=== PATIENT | female | born 1980 | race Caucasian/White ===

== ENCOUNTER 2021-11-21 14:01 | Emergency (ER) | payer OTHER, MEDICAID, SELFPAY ==
[2021-11-21 14:22] VITALS: BP 112/66; PULSE 100; RESP 18; TEMP 36.6; O2SAT 99; BMI 24.1
== END 2021-11-21 14:50 | disposition left against medical advice (07) ==
PROVIDERS: Emergency Provider Family Medicine Addiction Medicine; PCP Family Medicine
CPT/HCPCS: 99281

== ENCOUNTER 2024-10-08 13:22 | Emergency (ER) | payer MEDICAID, SELFPAY ==
[2024-10-08 13:26] VITALS: BP 134/83; PULSE 98; RESP 16; TEMP 36.8; O2SAT 98; BMI 23.0
[2024-10-08 14:19] VITALS: BP 129/82; PULSE 100; RESP 16; TEMP 36.7; O2SAT 95
--- NOTE | 2024-10-08 14:19 | ED.ALCOHOL ---
HPI - Alcohol <Kanchan Pineda PA-C - Last Filed: 10/08/24 14:45> General Chief Complaint: Toxicology Problem Stated Complaint: Fit for Group Home Time Seen by Provider: 10/08/24 13:44 Source: patient and other Mode of arrival: other History of Present Illness HPI narrative: 44-year-old female with past medical history alcohol abuse, cirrhosis of the liver brought in by law enforcement officials to be evaluated for fitness for detention. Officers communicate that patient had an elevated blood alcohol level of 0.28. Patient is in the ED, appears comfortable and is coherent and conversing normally. Patient is able to answer all questions about the alcohol consumption and her health problems. Patient states that she was sober for some time, relapsed into drinking about 10 days ago. Patient states that her last drink was last night. Patient has been drinking daily. Patient does endorse that she sometimes gets the shakes and withdrawal symptoms if she stops drinking. Currently, patient is denying any symptoms. No fever, chills, chest pain, shortness of breath, nausea, vomiting, abdominal pain, dysuria, lightheadedness, dizziness, syncope. Denies any recreational drug use. Related Data Allergies Allergy/AdvReac Type Severity Reaction Status Date / Time amoxicillin Allergy Mild Verified 11/21/21 14:22 Review of Systems <Kanchan Pineda PA-C - Last Filed: 10/08/24 14:45> Review of Systems Narrative: Patient has no complaints at this time Constitutional Constitutional: Denies chills, Denies fatigue, Denies fever(s), Denies frequent falls, Denies lethargy and Denies weakness Eyes Eyes: Denies change in vision, Denies eye discharge, Denies irritation and Denies loss of vision ENT Ears, Nose, Mouth, and Throat: Denies change in voice, Denies dizziness, Denies neck pain, Denies sore throat and Denies throat swelling Cardiovascular Cardiovascular: Denies chest pain, Denies irregular heart rhythm, Denies lightheadedness, Denies palpitations, Denies dyspnea, Denies dyspnea on exertion and Denies orthopnea Respiratory Respiratory: Denies cough, Denies dyspnea, Denies dyspnea on exertion and Denies wheezing Gastrointestinal Gastrointestinal: Denies abdominal pain, Denies change in bowel habits, Denies diarrhea, Denies nausea and Denies vomiting Musculoskeletal Musculoskeletal: Denies neck pain and Denies numbness Integumentary/Breasts Skin/Breast: Denies pruritus, Denies erythema, Denies rash and Denies wounds Neurologic Neurologic: Denies behavioral changes, Denies confusion, Denies dizziness, Denies frequent falls, Denies loss of vision, Denies numbness and Denies weakness Psychiatric Psychiatric: Denies anxiety, Denies behavioral changes, Denies confusion, Denies depression, Denies homicidal ideation and Denies suicidal ideation Endocrine Endocrine: Denies fatigue, Denies flushing and Denies palpitations Hematologic/Lymphatic Hematologic/Lymphatic: Denies easy bruising Allergic/Immunologic Allergic/Immunologic: Denies urticaria, Denies throat swelling and Denies wheezing Patient History <Kanchan Pineda PA-C - Last Filed: 10/08/24 14:45> Social History Smoking Status: Current some day smoker Smoking Status: Current some day smoker tobacco type: cigarettes alcohol intake frequency: 3 or more drinks per day Alcohol type: beer and hard liquor Exam <Kanchan Pineda PA-C - Last Filed: 10/08/24 14:45> Narrative Exam Narrative: Const General:?cooperative, healthy appearing and comfortable; patient is awake, coherent, conversing normally and able to answer questions HENIA Head:?normal to inspection Ears:?hearing grossly normal bilaterally Nose:?external nose normal Face and sinus:?normal facial exam and sinuses nontender Mouth:?oral mucosae normal Throat:?posterior oropharynx normal Eyes General:?appearance normal, both eyes and all related structures Neck Neck:?normal visual inspection and no lymphadenopathy noted Resp Effort & Inspection:?normal respiratory effort Auscultation:?clear to auscultation bilaterally Cardio Rate:?regular rate Rhythm:?regular rhythm Neuro General:?patient alert, patient awake and patient oriented x3; gait is normal Initial Vital Signs Initial Vital Signs: Vital Signs Temperature 98.3 F 10/08/24 13:26 Pulse Rate 98 H 10/08/24 13:26 Respiratory Rate 16 10/08/24 13:26 Blood Pressure 134/83 10/08/24 13:26 Pulse Oximetry 98 10/08/24 13:26 Oxygen Delivery Method Room Air 10/08/24 13:26 <Elvis Noriega MD - Last Filed: 10/08/24 16:51> Initial Vital Signs Initial Vital Signs: Vital Signs Temperature 98.3 F 10/08/24 13:26 Pulse Rate 98 H 10/08/24 13:26 Respiratory Rate 16 10/08/24 13:26 Blood Pressure 134/83 10/08/24 13:26 Pulse Oximetry 98 10/08/24 13:26 Oxygen Delivery Method Room Air 10/08/24 13:26 Course <Kanchan Pineda PA-C - Last Filed: 10/08/24 14:45> Vital Signs Vital signs: Vital Signs - 8 hr 10/08/24 13:26 10/08/24 14:19 Temperature 98.3 F 98.1 F Pulse Rate 98 H 100 H Respiratory Rate 16 16 Blood Pressure 134/83 129/82 Pulse Oximetry 98 95 Oxygen Delivery Method Room Air Room Air <Elvis Noriega MD - Last Filed: 10/08/24 16:51> Vital Signs Vital signs: Vital Signs - 8 hr 10/08/24 13:26 10/08/24 14:19 Temperature 98.3 F 98.1 F Pulse Rate 98 H 100 H Respiratory Rate 16 16 Blood Pressure 134/83 129/82 Pulse Oximetry 98 95 Oxygen Delivery Method Room Air Room Air MDM - Alcohol <Kanchan Pineda PA-C - Last Filed: 10/08/24 14:45> MDM Narrative Medical decision making narrative: 44-year-old female with past medical history alcohol abuse, cirrhosis of the liver brought in by law enforcement officials to be evaluated for fitness for detention. Physical exam is reassuring in that patient is able to walk unassisted and is alert and able to converse coherently. No signs of withdrawal noted on exam. Patient has no complaints at this time either. At this time, patient appears fit for detention. Discussed with patient and law enforcement officers that patient is at risk for withdrawal, and officers confirm that they have medical staff to attend to such conditions. Medical records reviewed: Yes Discharge Plan Departure Patient Disposition: Home Clinical Impression: Alcoholic intoxication Instructions: DI for Alcohol Use Disorder Activity Restrictions/Additional Instructions: You were evaluated in the emergency department today to assess fitness for detention. It appears that you under the influence of alcohol, however you are able to converse coherently and walk. You are at risk of alcohol withdrawal, therefore please seek medical treatment if you are experiencing symptoms such as shakes, vomiting, agitation. At this time you have been evaluated to be fit for detention. Referrals: Morteza Moore MD [Primary Care Provider] - Stand Alone Forms: Patient Portal/API/Survey ED Sign-out <Elvis Noriega MD - Last Filed: 10/08/24 16:51> Cosign ED Attending Cosignature Attestation: I was immediately available in the department for consultation. ?This documentation has been reviewed and I agree with assessment and plan. Supervised by Elvis Noriega MD
== END 2024-10-08 14:29 | disposition home or self-care (01) ==
PROVIDERS: Emergency Provider Student in an Organized Health Care Education/Training Program; PCP Family Medicine
DX: Z02.89 Encounter for other administrative examinations (principal); F10.129 Alcohol abuse with intoxication, unspecified
CPT/HCPCS: 99281; 99282